=== PATIENT | female | born 1995 | race African-American/Black ===

== ENCOUNTER 2021-05-17 18:21 | Emergency (ER) | payer MEDICAID ==
[2021-05-17] MEDS: Cephalexin 250 MG Cap PO ONE ×2 (21:11)
== END 2021-05-18 09:22 | disposition home or self-care (01) ==
LOC: JP.ED 18:21
DX: F32.A Depression, unspecified (principal); F41.9 Anxiety disorder, unspecified; N39.0 Urinary tract infection, site not specified
CPT/HCPCS: 36415; 80053; 80305; 80307; 81001; 85025; 99284; A9270